=== PATIENT | male | born 1960 | race Caucasian/White ===

== ENCOUNTER → 2017-05-14 | Outpatient (CLI) | payer MEDICARE, OTHER ==
[2017-05-14 07:41] LABS: CH 30.8; CHCM 31.7; HCT 48.1 % (39.0-53.0); HDW 2.46; HGB 15.3 gm/dL (13.0-17.5); MCH 31.1 pg (25.0-35.0); MCHC 31.9 g/dL (31.0-37.0); MCV 97.4 fL (80.0-100.0); Mean Platelet Volume 6.5; RBC 4.93 m/uL (4.30-5.90); WBC 7.5 k/uL (3.8-10.6)
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
[2017-05-14 11:52] LABS: ALT 27 U/L (21-72); AST 18 U/L (17-59); Alkaline Phosphatase 94 U/L (38-126); Anion Gap 8 mmol/L; Blood Urea Nitrogen 16 mg/dL (9-20); Calcium 9.4 mg/dL (8.4-10.2); Carbon Dioxide 27 mmol/L (22-30); Chloride 105 mmol/L (98-107); Cholesterol 236 mg/dL (<200); Glucose 98 mg/dL (74-99); HDL Cholesterol 37 mg/dL (40-60); Non-African American GFR(MDRD) >60 (>60 ml/min/1.73 sqM); Potassium 4.3 mmol/L (3.5-5.1); Sodium 140 mmol/L (137-145); Total Bilirubin 0.4 mg/dL (0.2-1.3); Total Protein 7.2 g/dL (6.3-8.2)
[2017-05-14 12:18] LABS: Prostate Specific Antigen 0.98 ng/mL (0.00-4.00)
== END | disposition home or self-care (01) ==
LOC: LABWHC1 07:10
PROVIDERS: ATTEND Internal Medicine
DX: J44.9 Chronic obstructive pulmonary disease, unspecified (principal); Z00.00 Encounter for general adult medical examination without abnormal findings; E78.2 Mixed hyperlipidemia; K21.0 Gastro-esophageal reflux disease with esophagitis; F31.9 Bipolar disorder, unspecified; E03.9 Hypothyroidism, unspecified; N40.0 Benign prostatic hyperplasia without lower urinary tract symptoms
CPT/HCPCS: 36415; 71020; 80053; 80061; 82272; 84153; 84439; 84443; 85027

== ENCOUNTER → 2020-03-05 | Outpatient (CLI) | payer MEDICARE, OTHER ==
--- NOTE | 2020-03-05 15:27 | XR ---
EXAMINATION TYPE: XR lumbar spine 2 or 3V DATE OF EXAM: 03/05/2020 CLINICAL HISTORY: Lower back pain TECHNIQUE: Frontal and lateral images of the lumbar spine obtained. COMPARISON: None FINDINGS: There are 5 lumbar type vertebral bodies identified. The lumbar spine shows satisfactory alignment without evidence of acute fracture or dislocation. Vertebral body heights and disk space he ights are within normal limits. There is lateral marginal osteophytic spurring of multiple levels. Fa cet arthropathy of the inferior lumbar spine. No evidence of spondylolisthesis. Incompletely visualiz ed hip prosthesis. Abdominal aortic atherosclerotic calcifications. IMPRESSION: 1. No acute fracture or dislocation is seen in the lumbar spine. 2. Multilevel osteophytic spurring and facet arthropathy.
--- NOTE | 2020-03-05 15:36 | XR ---
EXAMINATION TYPE: XR Hip Bilateral Complete DATE OF EXAM: 03/05/2020 CLINICAL HISTORY: Hip pain and numbness for one year TECHNIQUE: AP and frogleg views of the bilateral hips obtained. COMPARISON: Left hip radiograph 01/01/2012 FINDINGS: Left hip arthroplasty with no evidence of dislocation. There is adjacent lucency of the ac etabulum diffusely similar to 2012 comparison. No lucency associated with the femoral stem. Dystrophi c calcifications adjacent to the left greater trochanter, and trochanteric irregularity which appears chronic. There is no acute fracture or dislocation of the bilateral hips. There is right hip joint s pace narrowing with superior acetabular bone on bone contact, sclerosis, and subchondral cystic boogie e. Normal osseous mineralization. IMPRESSION: 1. Degenerative changes of the right hip as above, with [id number] contact at the superior acetabul um. 2. Status post left hip arthroplasty, with appearance similar to 2012 comparison. No evidence of hard duong fracture or dislocation.
== END | disposition home or self-care (01) ==
LOC: RADXRMAIN 14:42
PROVIDERS: ATTEND Family Medicine
DX: M47.816 Spondylosis without myelopathy or radiculopathy, lumbar region (principal); M16.11 Unilateral primary osteoarthritis, right hip; Z96.642 Presence of left artificial hip joint
CPT/HCPCS: 72100; 73521

== ENCOUNTER → 2020-03-19 | Outpatient (CLI) | payer MEDICARE, OTHER ==
[2020-03-19 10:54] LABS: INR 0.9 (<1.2); Prothrombin Time 9.4 sec (9.0-12.0)
[2020-03-19 10:56] LABS: HCT 46.8 % (39.0-53.0); HGB 14.8 gm/dL (13.0-17.5); MCH 30.3 pg (25.0-35.0); MCHC 31.7 g/dL (31.0-37.0); MCV 95.5 fL (80.0-100.0); Mean Platelet Volume 7.5; Platelet Count 360 k/uL (150-450); RDW 13.3 % (11.5-15.5); WBC 9.2 k/uL (3.8-10.6)
[2020-03-19 11:16] LABS: African American GFR (CKD) >90 (>60 ml/min/1.73 sqM); Anion Gap 6 mmol/L; Blood Urea Nitrogen 12 mg/dL (9-20); Carbon Dioxide 26 mmol/L (22-30); Chloride 104 mmol/L (98-107); Glucose 104 mg/dL (74-99); Non-African American GFR(CKD) >90 (>60 ml/min/1.73 sqM); Potassium 4.7 mmol/L (3.5-5.1); Sodium 136 mmol/L (137-145)
== END | disposition home or self-care (01) ==
LOC: LABPAT 09:39
PROVIDERS: ATTEND Orthopaedic Surgery
DX: Z01.812 Encounter for preprocedural laboratory examination (principal); Z01.818 Encounter for other preprocedural examination; M16.11 Unilateral primary osteoarthritis, right hip
CPT/HCPCS: 36415; 80048; 85027; 85610; 86850; 86900; 86901; 87070

== ENCOUNTER → 2020-04-26 | Outpatient (CLI) | payer MEDICARE, OTHER ==
[2020-04-26 12:44] LABS: HCT 51.9 % (39.0-53.0); HGB 16.7 gm/dL (13.0-17.5); MCH 30.1 pg (25.0-35.0); MCHC 32.2 g/dL (31.0-37.0); MCV 93.4 fL (80.0-100.0); Mean Platelet Volume 6.4; Platelet Count 430 k/uL (150-450); RBC 5.55 m/uL (4.30-5.90); RDW 14.2 % (11.5-15.5); WBC 8.9 k/uL (3.8-10.6)
[2020-04-26 12:59] LABS: African American GFR (CKD) >90 (>60 ml/min/1.73 sqM); Anion Gap 9 mmol/L; Blood Urea Nitrogen 10 mg/dL (9-20); Calcium 10.3 mg/dL (8.4-10.2); Carbon Dioxide 26 mmol/L (22-30); Chloride 103 mmol/L (98-107); Glucose 122 mg/dL (74-99); Non-African American GFR(CKD) 90 (>60 ml/min/1.73 sqM); Potassium 4.3 mmol/L (3.5-5.1); Sodium 138 mmol/L (137-145)
[2020-04-26 13:00] LABS: INR 0.9 (<1.2); Prothrombin Time 9.4 sec (9.0-12.0)
== END | disposition home or self-care (01) ==
LOC: LABPAT 11:20
PROVIDERS: ATTEND Orthopaedic Surgery
DX: Z01.818 Encounter for other preprocedural examination (principal); M16.11 Unilateral primary osteoarthritis, right hip
CPT/HCPCS: 80048; 85027; 85610

== ENCOUNTER 2020-04-29 13:23 | Day surgery (SDC) | payer MEDICARE, OTHER ==
[2020-04-24 12:01] VITALS: BMI 25.0
--- NOTE | 2020-04-28 22:52 | HP ---
HISTORY AND PHYSICAL DATE OF SURGERY: 04/29/2020 David Dia is a 59-year-old patient seen with symptomatic right hip osteoarthritis. We discussed options. He elected to proceed with right total hip arthroplasty via direct anterior approach. Consent was obtained. PAST MEDICAL HISTORY: Noncontributory. PAST SURGICAL HISTORY: Left total hip arthroplasty. MEDICATIONS: Albuterol, tramadol. ALLERGIES: ASPIRIN. SOCIAL HISTORY: He denies current tobacco use. PHYSICAL EXAMINATION: Physical evaluation of the right hip: Limited range of motion with severe pain. Positive hip impingement sign. Straight leg raise negative. Distal neurovascular exam intact. Radiographs of the right hip reveal severe osteoarthritic changes. IMPRESSION: 1. Right hip osteoarthritis. 2. Asthma. PLAN: Direct anterior right total hip arthroplasty. MMODL / IJN: [id number] /
[~2020-04-29 13:23] MED LIST: MIDAZOLAM 2 MG/2 ML VIAL IV PRN; ROPIVACAINE 246.25 MG, EPINEPHrine 0.5 MG, KETOROLAC 30 MG, cloNIDine HCL/PF 80 MCG, WA... MISCELLANE ONE; SCOPOLAMINE 1.5MG/72HR PATCH TRANSDERM ONE; TRANEXAMIC ACID 1,000 MG in SODIUM CHLORIDE 0.9% 100 ML IVPB ONE; fentaNYL (PF) 50 MCG/ML 2 ML AMP IVP PRN
[2020-04-29] MEDS: ACETAMINOPHEN TAB 500 MG TAB PO ONE ×2 (13:58→21:04)
[2020-04-29] MEDS ORDERED: LIDOCAINE 1% (10MG/ML) FOR IV START INTRADERMA ONE (13:59)
[2020-04-29] MEDS: LACTATED RINGERS 1,000 ML IV SCH ×4 (13:59→22:15)
[2020-04-29] MEDS: MELOXICAM 7.5 MG TAB PO ONE ×2 (13:59→21:04)
[2020-04-29] MEDS ORDERED: ONDANSETRON 4 MG/2 ML VIAL IVP ONE (14:00)
[2020-04-29] MEDS: DEXAMETHASONE SOD PHOSPHATE 10 MG/ML 1 ML VIAL IV ONE ×2 (14:00→21:04)
[2020-04-29] MEDS ORDERED: TRANEXAMIC ACID 1,000 MG/10 ML VIAL ONE (15:21)
[2020-04-29] MEDS ORDERED: fentaNYL (PF) 50 MCG/ML 2 ML AMP ONE (15:21)
[2020-04-29] MEDS ORDERED: MIDAZOLAM 2 MG/2 ML VIAL ONE (15:21)
[2020-04-29] MEDS ORDERED: SODIUM CHLORIDE 0.9% 100 ML BAG ONE (15:21)
[2020-04-29] MEDS ORDERED: PROPOFOL 10 MG/ML 20 ML VIAL IV ONE (15:21)
[2020-04-29] MEDS ORDERED: ceFAZolin 1,000 MG in SODIUM CHLORIDE 0.9% 1,000 ML IRRIGATION ONE (15:52)
[2020-04-29] MEDS ORDERED: LACTATED RINGERS 1,000 ML IV ONE (16:03)
[2020-04-29] MEDS ORDERED: HYDROmorphone 1 MG/ML 1 ML SYRINGE IVP PRN (16:54)
[2020-04-29] MEDS ORDERED: ONDANSETRON 4 MG/2 ML VIAL IVP PRN (16:54)
[2020-04-29] MEDS ORDERED: HYDROmorphone 0.5 MG/0.5 ML SYRINGE IVP PRN ×2 (16:54)
[2020-04-29] MEDS ORDERED: HYDROcodone/APAP 5-325MG 1 EACH TAB PO PRN (16:54)
[2020-04-29] MEDS ORDERED: NALOXONE 0.4 MG/ML 1 ML VIAL IV PRN (16:54)
--- NOTE | 2020-04-29 16:54 | P.OP ---
Date of Procedure: 04/29/20 Preoperative Diagnosis: Right hip osteoarthritis Postoperative Diagnosis: Right hip osteoarthritis Procedure(s) Performed: Direct anterior right total hip arthroplasty Implants: 1. Depuy [place] KA standard size 10 press-fit femoral stem 2. Depuy [place] 54 mm press-fit acetabular shell 3. Depuy [place] polyethylene acetabular liner neutral 54 OD 36 ID 4. Biolox delta ceramic femoral head +1.5 36 mm Anesthesia: local, spinal Surgeon: Doni Cobos Photography Editor #1: Merrick Loera Estimated Blood Loss (ml): 150 Pathology: other (Femoral head) Condition: stable Disposition: PACU Indications for Procedure: 59-year-old patient seen with symptomatic right hip osteoarthritis. After treatment options were discussed, he elected to proceed with right total hip arthroplasty via direct anterior approach. Operative Findings: See description of procedure Description of Procedure: The patient was taken to the operative suite. Patient underwent a spinal anesthetic by the department of anesthesia. Patient was then transferred to the [place] table. Patient was given preoperative IV antibiotics and TXA. Both lower extremities were placed in standard leg spars. The hip was then prepped and draped in the normal sterile orthopedic fashion. A standard anterior incision was made beginning 3 cm lateral and 1 cm distal to the ASIS extending 10 cm. Dissection was then carried down through the subcutaneous soft tissues down to the fascia overlying the tensor fascia angelo. An incision was now made through the fascia. Careful dissection was taken down exposing the tensor fascia angelo muscle. A Cobra retractor was now placed along the medial femoral neck and a second one along the lateral femoral neck. The venous circumflex vessels were now identified, cauterized and clipped. We identified the anterior hip capsule. An incision was made through the hip capsule along the lateral border. I performed a partial anterior capsulectomy. Retractors were now placed around the femoral neck itself. A femoral neck cut was now made with a sagittal saw. It was completed with an osteotome at the lateral neck area. The femoral head was now removed without difficulty. The extremity was now rotated to 60 of external rotation. It was locked in position. Residual labrum was now debrided out. Serial reaming was performed of the acetabulum while Mike VENTURA assisted holding an anterior retractor for exposure. Once we reached the appropriate size and a trial was position and fit nicely. The appropriate size was now chosen opened and made available. It was introduced into the acetabulum without difficulty. The C-arm/fluoroscopy was now brought into the operative field. We made sure we had a true AP pelvic view. We now under direct C-arm/fluoroscopy introduced into the acetabular component with appropriate version and inclination. I held the cup in appropriate position well Mike VENTUAR used a mallet to seat the acetabular component. I noted the component now to be well seated and stable. Acetabular cup introduce her was removed. The C-arm was pulled back. An appropriate liner was introduced and clicked into position. It was felt to be stable. At this point retractors were removed. The extremity was now placed into 130 external rotation with no traction. The leg was now dropped to the ground and adducted. Appropriate retractors were now positioned along the proximal femur. We also placed our femoral look into position. Additional capsular releasing was performed to gain access to the proximal femur. We now used a box osteotome. A canal finder was now utilized. Serial broaching was now performed with the assistance of Mike VENTURA tapping the broaches down with a mallet while held the broach in appropriate rotation and position. This was done until we reached the appropriate size with good overall rotational stability. Appropriate calcar planing was performed. A trial head/neck was placed into position. The hip was now reduced. The C- arm/fluoroscopy was brought back into the operative field. An AP pelvis was obtained and revealed reasonable alignment of the lesser trochanters for leg length determination. The trial components appeared well positioned. The C- arm/fluoroscopy was pulled back. Retractors were repositioned and the hip was dislocated. The leg was again taken down to the ground and adducted. Appropriate retractors were repositioned as well as the femoral hook. All trial components were removed. The femoral implant was opened along with the femoral head. The femoral implant was introduced on the appropriate handle into our pre-broached area. I held the component position well Mike VENTURA used a mallet to seat the femoral component. The femoral component was now noted to be well seated and stable.. The femoral head was introduced with good positioning and fixation noted. Retractors were now removed. The hip was now reduced. There appeared be good positioning of the hip confirmed on intraoperative fluoroscopy. Spot films were obtained to document this. A second gram of TXA was given. The deep and superficial soft tissues were infiltrated with local analgesic. Bipolar cautery had been utilized intermittently through the procedure for hemostasis. The wound was irrigated copiously with pulse lavage mechanical irrigation. The fascia was repaired with Vicryl suture. The subcutaneous soft tissues were repaired in layers with Vicryl suture. The skin was approximated with pernio/Dermabond. Sterile dressings were applied. Patient was then awakened, transferred to a bed and taken to recovery in stable condition. Mike VENTURA assisted with the complex procedure.
[2020-04-29] MEDS: HYDROmorphone 0.5 MG/0.5 ML SYRINGE IVP PRN ×6 (17:35→19:35)
[2020-04-29] MEDS ORDERED: KETOROLAC 15 MG/ML 1 ML VIAL ONE (17:50)
[2020-04-29] MEDS ORDERED: fentaNYL (PF) 50 MCG/ML 2 ML AMP IVP ONE (19:10)
--- NOTE | 2020-04-29 19:18 | P.PN ---
Progress Note - Text Progress Note Date: 04/29/20 Called due to pt continued pain in hip in PACU. Per nsg pt is stating pain 9/10 in hip. Does not radiate. Vitals however are stable with little reflection of pain. Nursing states some swelling to anterior hip. Recommended Xray, Ice packs, and 10 lb sand bag to anterior hip. Xrays completed in PACU. Implant in good position. No fractures or dislocation noted. No gross swelling appreciated. Ordered 5 mg of Valium TID PRN analgesia for pain, anxiety and spasm like symptoms. Nursing agreed. Call with and questions. As long as pt is stable per PACU staff and anesthesia provider they can be transferred to the floor.
--- NOTE | 2020-04-29 19:26 | XR ---
EXAMINATION TYPE: XR Hip RT and AP Pelvis DATE OF EXAM: 04/29/2020 COMPARISON: 03/05/2020 HISTORY: Pain TECHNIQUE: 3 views FINDINGS: There is a right hip prosthesis. Components appear in anatomic position. The sacroiliac dl nts are intact. Pelvic ring is intact. There is left hip prosthesis. IMPRESSION: Right hip prosthesis appears in good position. No complicating process seen.
[2020-04-29] MEDS ORDERED: SENNOSIDES-DOCUSATE SODIUM 1 EACH TAB PO SCH (21:00)
[2020-04-29] MEDS: HYDROcodone/APAP 5-325MG 1 EACH TAB PO PRN (21:09)
[2020-04-29] MEDS: diazePAM 5 MG TAB PO PRN (22:15)
[2020-04-29] MEDS ORDERED: IPRATROPIUM-ALBUTEROL 3 ML NEB INHALATION PRN (22:45)
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
[2020-04-30] MEDS: NICOTINE 21MG/24HR PATCH TRANSDERM SCH ×2 (00:29→08:31)
[2020-04-30] MEDS: HYDROcodone/APAP 5-325MG 1 EACH TAB PO PRN (04:47)
[2020-04-30 06:26] LABS: Basophils % (A) 0 %; Eosinophils % (A) 0 %; HCT 41.5 % (39.0-53.0); Lymphocytes # (A) 1.5 k/uL (1.0-4.8); Lymphocytes % (A) 9 %; MCHC 31.8 g/dL (31.0-37.0); MCV 94.5 fL (80.0-100.0); Mean Platelet Volume 6.7; Monocytes # (A) 1.1 k/uL (0-1.0); Monocytes % (A) 6 %; Neutrophils # (A) 14.5 k/uL (1.3-7.7); Neutrophils % (A) 83 %; Platelet Count 331 k/uL (150-450); RDW 14.5 % (11.5-15.5); WBC 17.5 k/uL (3.8-10.6)
[2020-04-30 06:29] LABS: HGB 13.2 gm/dL (13.0-17.5)
--- NOTE | 2020-04-30 07:54 | FL ---
Fluoroscopy HISTORY: Anterior hip replacement 23 seconds fluoroscopy time supplied to the referring clinician. 2 intraoperative C-arm images docum ent the procedure. See dictated report from orthopedic surgery.
--- NOTE | 2020-04-30 07:54 | XR ---
Limited right hip HISTORY: Anterior hip replacement 2 intraoperative images document the procedure
[2020-04-30 08:04] VITALS: BP 116/68; PULSE 85; RESP 16; TEMP 98.4
[2020-04-30] MEDS: diazePAM 5 MG TAB PO PRN (08:34)
[2020-04-30] MEDS: LACTATED RINGERS 1,000 ML IV SCH (08:37)
[2020-04-30] MEDS ORDERED: ENOXAPARIN 40 MG/0.4 ML SYRINGE SQ SCH (09:00)
[2020-04-30] MEDS ORDERED: MELOXICAM 7.5 MG TAB PO SCH (09:00)
[2020-04-30 10:13] LABS: African American GFR (CKD) 113.3 (60.0-200.0); Albumin 3.9 g/dL (3.80-4.90); Albumin/Globulin Ratio 2.29 (1.60-3.17); Anion Gap 8.7 mmol/L (4.00-12.00); BUN/Creat Ratio 16.25 Ratio (12.00-20.00); Calcium 8.8 mg/dL (8.7-10.3); Carbon Dioxide 23.3 mmol/L (21.6-31.8); Globulin 1.7 g/dL (1.6-3.3); Non-African American GFR(CKD) 97.8 (60.0-200.0); Potassium 4.4 mmol/L (3.5-5.5); Total Bilirubin 0.5 mg/dL (0.2-1.2); Total Protein 5.6 g/dL (6.2-8.2)
--- NOTE | 2020-04-30 10:32 | P.PN ---
Subjective Progress Note Date: 04/30/20 Patient is doing well today. Pain is well-controlled. He is informed to be discharged later on. Objective - Vital Signs Vital signs: Vital Signs Temp 98.4 F 04/30/20 07:00 Pulse 85 04/30/20 07:00 Resp 16 04/30/20 07:00 BP 116/68 04/30/20 07:00 Pulse Ox 95 04/30/20 07:00 Intake & Output 04/29/20 04/30/20 04/30/20 18:59 06:59 18:59 Intake Total 1751 300 Output Total 150 Balance 1601 300 Weight 67.5 kg Intake: IV 1751 Oral 300 Output: Estimated Blood Loss 150 Other: # Voids 2 - Exam General: The patient is awake and alert, in no distress Eye: there is normal conjunctiva bilaterally. Neck: The neck is supple, there is no JVD. Cardiovascular: Normal S1-S2, no S3-S4, no murmurs. Respiratory: Lungs clear to auscultation bilaterally Gastrointestinal: Abdomen is soft, nontender Musculoskeletal: There is no pedal edema. Neurological:. Speech is normal. Skin: Skin is warm and dry - Labs CBC & Chem 7: 04/30/20 05:33 04/30/20 05:33 Labs: Abnormal Lab Results - Last 24 Hours (Table) 04/30/20 04/30/20 Range/Units 05:33 05:33 WBC 17.5 H (3.8-10.6) k/uL Neutrophils # 14.5 H (1.3-7.7) k/uL Monocytes # 1.1 H (0-1.0) k/uL Total Protein 5.6 L (6.2-8.2) g/dL Assessment and Plan Assessment: Right hip degenerative joint disease status post right total hip arthroplasty postoperative day 1 Pain management and DVT prophylaxis per orthopedics Currently on Lovenox daily Tobacco smoking Counseled to quit smoking during this admission Leukocytosis, most likely reactive. No evidence of infection Today, I reviewed his medication list and lab work results. PT/OT evaluation. Patient is medically cleared for discharge.
--- NOTE | 2020-04-30 10:40 | P.PN ---
Subjective Progress Note Date: 04/30/20 Principal diagnosis: Status post direct anterior right total hip arthroplasty Patient evaluated bedside, is resting comfortably. He did very well with physical therapy. He is having no acute pain. He denies chest pain, shortness of breath, fever or chills. Objective - Vital Signs Vital signs: Vital Signs Temp 98.4 F 04/30/20 07:00 Pulse 85 04/30/20 07:00 Resp 16 04/30/20 07:00 BP 116/68 04/30/20 07:00 Pulse Ox 95 04/30/20 07:00 Intake & Output 04/29/20 04/30/20 04/30/20 18:59 06:59 18:59 Intake Total 1751 300 Output Total 150 Balance 1601 300 Weight 67.5 kg Intake: IV 1751 Oral 300 Output: Estimated Blood Loss 150 Other: # Voids 2 - Exam Right lower extremity: Incision is clean, dry, and intact. The foam dressing is in good condition. There is minimal soft tissue swelling and ecchymosis surrounding the medial and lateral aspects of the incision. Calf is soft, no tenderness with palpation. Plantar flexion, dorsiflexion, EHL, FHL are intact. Sensory exam to light touch throughout the extremity is intact, dorsal pedis pulses 2+. - Labs CBC & Chem 7: 04/30/20 05:33 04/30/20 05:33 Labs: Abnormal Lab Results - Last 24 Hours (Table) 04/30/20 04/30/20 Range/Units 05:33 05:33 WBC 17.5 H (3.8-10.6) k/uL Neutrophils # 14.5 H (1.3-7.7) k/uL Monocytes # 1.1 H (0-1.0) k/uL Total Protein 5.6 L (6.2-8.2) g/dL Assessment and Plan Assessment: Status post direct anterior right total hip arthroplasty Plan: Pain control, plan for discharge home on [place] 7.5/325 GI and DVT prophylaxis, aspirin 81 mg twice a day Wound care instructions discussed Home physical therapy and nursing for discharge Medical recommendations Plan for discharge home today Time with Patient: Less than 30
--- NOTE | 2020-04-30 10:50 | P.DS ---
Providers Date of admission: 04/29/2020 Expected date of discharge: 04/30/20 Attending physician: Doni Cobos Consults: 04/29/20 16:54 Consult Physician Routine Consulting Provider: Peng Soto Consult Reason/Comments: Medical management Do you want consulting provider notified?: Yes Primary care physician: Alvaro Milian [facility] Course: Date of admission: 04/29/2020 Date of discharge: 04/30/2020 Admission diagnosis: direct anterior right total hip arthroplasty Discharge diagnosis: Same Attending physician: Dr. Cobos Surgical procedures: Direct anterior right total hip arthroplasty Brief history: Patient is a 59-year-old male with a history of progressive primary right knee osteoarthritis. At this point patient has failed conservative treatment measures and has opted to proceed with a elective right total knee arthroplasty. Hospital course: Details of patient's surgery can be found in operative report. Patient tolerated the procedure well and was subsequently transported to orthopedic floor. Patient's orthopeidc and medical care was provided daily. Patient had daily laboratory tests performed for evaluation of overall blood counts. Patient had daily physical therapy to include strengthening range of motion as well as education with walker ambulation. Patient was treated with Eliquis for their postoperative DVT prophylaxis during their inpatient stay. Patient was noted to have a relatively uneventful postoperative course. Patient reported satisfactory pain control with oral pain medications by postoperative day 0. Patient showed satisfactory progress with physical therapy. Patient moved steadily through the program and had no difficulty meeting the goals by postoperative day 1. Given patient's otherwise satisfactory course and having met physical therapy goals, plan is to discharge patient home on postoperative day 1. Discharge condition/disposition: Patient will be discharged home in stable condition. Discharge medications: Instructions are given on resumption of patient's normal daily medications per primary care recommendation, in addition patient will be prescribed [place] 7.5 mg/325 mg, Colace 100 mg, aspirin 81 mg. Discharge instructions: 1. Wound care and infection precautions, keep incision dry and covered while showering no lotions, creams, moisturizers. No soaking, tubs, pools, hottubs. Do not scrub over the incision. 2. Weight-bear s tolerated with walker / cane until follow-up. 3. Ice and elevate when necessary. Do not exceed 20 minutes per hour with ice pack. 4. Utilize compression sleeve until seen at first follow up appointment. 5. Visiting nursing care. 6. Home physical therapy. 7. Pain meds and anticoagulants per prescription. 8. Pain medication has potential to cause constipation. Increase oral fluid and fiber intake. Contact primary care provider if you have not had a bowel movement within 48 hours after discharge 9. No anti-inflammatory medication until discussed at first post operative visit, this including Motrin, Aleve, Mobic, Diclofenac. 10. Follow up in office at 2 weeks postop with Mike Loera PA-C 11. Follow up with your primary care doctor 7-10 days after discharge. 12. Contact [facility] with any questions, . Procedures: Direct anterior right total hip arthroplasty Patient Condition at Discharge: Good Plan - Discharge Summary Discharge Rx Participant: Yes New Discharge Prescriptions: New Aspirin [Adult Low Dose Aspirin EC] 81 mg PO BID #60 tablet. [place]te [Colace] 100 mg PO DAILY #30 capsule HYDROcodone/APAP 7.5-325MG [[place] 7.5] 1 - 2 each PO Q6HR PRN #40 tab PRN Reason: Pain No Action traMADol HCL 50 mg PO Q6H PRN PRN Reason: Pain Albuterol Nebulized [Ventolin Nebulized] 2.5 mg INHALATION Q4H PRN PRN Reason: Shortness Of Breath Albuterol Inhaler [Ventolin Hfa Inhaler] 2 puff INHALATION RT-QID PRN PRN Reason: Shortness Of Breath Discharge Medication List Albuterol Inhaler [Ventolin Hfa Inhaler] 2 puff INHALATION RT-QID PRN 04/24/20 [History] Albuterol Nebulized [Ventolin Nebulized] 2.5 mg INHALATION Q4H PRN 04/24/20 [History] traMADol HCL 50 mg PO Q6H PRN 04/24/20 [History] Aspirin [Adult Low Dose Aspirin EC] 81 mg PO BID #60 tablet. 04/30/20 [Rx] [place]usate [Colace] 100 mg PO DAILY #30 capsule 04/30/20 [Rx] HYDROcodone/APAP 7.5-325MG [[place] 7.5] 1 - 2 each PO Q6HR PRN #40 tab 04/30/20 [Rx] Follow up Appointment(s)/Referral(s): [facility] [NON-STAFF] - As Needed (walker) Doni Cobos DO [Doctor of Osteopathic Medicine] - 05/15/20 3:00 pm [facility] Visiting Nurse, [NON-STAFF] - As Needed Activity/Diet/Wound Care/Special Instructions: Orthopedic Discharge Instructions: 1. Wound care and infection precautions, keep incision dry and covered while showering, no lotions, creams, moisturizers. No soaking, pools, hot tubs. Do not scrub over incision. Remove bandage on 05/08/2020 2. Weight-bear as tolerated with walker / cane until follow-up. 3. Ice and elevate when necessary. Do not exceed 20 minutes per hour with ice pack. 4. Utilize compression sleeve until seen at first follow up appointment. 5. Pain meds and anticoagulants per prescription. 6. Pain medication has potential to cause constipation. Increase oral fluid and fiber intake. Contact primary care provider if you have not had a bowel movement within 48 hours after discharge. 7. No anti-inflammatory medication until discussed at first post operative visit, this including Motrin, Aleve, Mobic, Diclofenac. 8. Follow up in office at 2 weeks postop with Mike Loera PA-C 9. Follow up with your primary care doctor 7-10 days after discharge. 10. Contact [facility] with any questions, . Discharge Disposition: HOME WITH HOME HEALTH SERVICES
== END 2020-04-30 12:13 | disposition home health service (06) ==
LOC: OR 13:23 → 4SSUR 16:54 → OR 04-30 12:13
PROVIDERS: ATTEND Orthopaedic Surgery
DX: M16.11 Unilateral primary osteoarthritis, right hip (principal); D72.829 Elevated white blood cell count, unspecified; J44.9 Chronic obstructive pulmonary disease, unspecified; K21.9 Gastro-esophageal reflux disease without esophagitis; F17.210 Nicotine dependence, cigarettes, uncomplicated; Z96.642 Presence of left artificial hip joint; Z79.891 Long term (current) use of opiate analgesic; Z79.899 Other long term (current) drug therapy; Z88.6 Allergy status to analgesic agent
CPT/HCPCS: 97110; 97161; 80053; 85025; 88300; 73501; 73502; 27130; C1776; S4990; J2250; J0171; J1100; J0690 ×3; J2405; J1650; J3010; J1885; J1170 ×2; J2795; J0735; 36415; 80048; 85027; 85610; 86850; 86900; 86901; 87070

== ENCOUNTER → 2020-07-15 | Outpatient (CLI) | payer MEDICARE, OTHER ==
[2020-07-16 01:35] LABS: ALT <8 U/L (10-49); AST 14 U/L (14-35)
[2020-07-16 01:53] LABS: Valproic Acid (Depakene) 43.8 ug/mL (50.0-100.0)
== END | disposition home or self-care (01) ==
LOC: LABWHC1 14:34
PROVIDERS: ATTEND Psychiatry & Neurology Neurology
DX: G40.909 Epilepsy, unspecified, not intractable, without status epilepticus (principal)
CPT/HCPCS: 36415; 80164; 84450; 84460

== ENCOUNTER → 2020-07-30 | Outpatient (CLI) | payer MEDICARE, OTHER ==
[2020-07-31 01:17] LABS: Valproic Acid (Depakene) 36.7 ug/mL (50.0-100.0)
== END | disposition home or self-care (01) ==
LOC: LABWHC1 11:41
PROVIDERS: ATTEND Psychiatry & Neurology Neurology
DX: G40.909 Epilepsy, unspecified, not intractable, without status epilepticus (principal)
CPT/HCPCS: 36415; 80164; 84450; 84460

== ENCOUNTER → 2021-03-07 | Outpatient (CLI) | payer MEDICARE, OTHER ==
--- NOTE | 2021-03-07 15:43 | XR ---
EXAMINATION TYPE: XR chest 2V DATE OF EXAM: 03/07/2021 COMPARISON: 05/14/2017 TECHNIQUE: PA and lateral views submitted. HISTORY: Cough FINDINGS: The lungs are clear and there is no pneumothorax, pleural effusion, or focal pneumonia. Interstitiu m somewhat coarsened. Hyperinflation suggests COPD. Hypertrophic and degenerative change of the spine . IMPRESSION: 1. COPD correlate for bronchitis or interstitial pneumonitis.
== END | disposition home or self-care (01) ==
LOC: RADXRMAIN 14:46
PROVIDERS: ATTEND Nurse Practitioner
DX: J44.9 Chronic obstructive pulmonary disease, unspecified (principal)
CPT/HCPCS: 71046

== ENCOUNTER 2021-06-08 22:21 | Emergency (ER) | payer MEDICARE, OTHER ==
[2021-06-08 22:35] VITALS: BP 127/72; RESP 18; TEMP 97.9
[2021-06-08] MEDS ORDERED: ALBUTEROL HFA INHALER INHALATION STA (22:53)
[2021-06-08] MEDS ORDERED: AMOXIC-POT CLAV 875MG STARTER PACK 2 TAB BTL PO STA (22:53)
[2021-06-08] MEDS ORDERED: MORPHINE SULFATE 4 MG/ML SYRINGE IM STA (22:53)
--- NOTE | 2021-06-08 22:54 | ED ---
ENT HPI - General Chief complaint: Dental/Oral Stated complaint: dental abcess Time Seen by Provider: 06/08/21 22:37 Source: patient Mode of arrival: ambulatory Limitations: no limitations - History of Present Illness Initial comments: 60 year-old male patient presents for evaluation of left sided facial swelling and left upper dental pain that started yesterday after he broke his tooth. States he has also been having trouble getting his insurance to cover his inhaler. He states he has had breathing problems for the last 20 years due to exposure to chemical at work. He denies increase in cough or sputum. States he has felt feverish and chilled. Denies nausea or vomiting. Denies history of diabetes. He is requesting inhaler and antibiotic for his tooth. - Related Data Home Medications Medication Instructions Recorded Confirmed Albuterol Inhaler [Ventolin Hfa 2 puff INHALATION RT-QID PRN 04/24/20 04/29/20 Inhaler] Albuterol Nebulized [Ventolin 2.5 mg INHALATION Q4H PRN 04/24/20 04/29/20 Nebulized] traMADol HCL 50 mg PO Q6H PRN 04/24/20 04/29/20 Previous Rx's Medication Instructions Recorded Aspirin [Adult Low Dose Aspirin EC] 81 mg PO BID #60 tablet. 04/30/20 Docusate [Colace] 100 mg PO DAILY #30 capsule 04/30/20 HYDROcodone/APAP 7.5-325MG [[place] 1 - 2 each PO Q6HR PRN #40 tab 04/30/20 7.5] Amoxic-Pot Clav 875-125Mg 1 tab PO Q12HR #20 tablet 06/08/21 [Augmentin 875-125] Allergies Allergy/AdvReac Type Severity Reaction Status Date / Time aspirin Allergy Rash/Hives Verified 06/08/21 22:36 ibuprofen [From Motrin] Allergy Rash/Hives Verified 06/08/21 22:36 Review of Systems ROS Statement: Those systems with pertinent positive or pertinent negative responses have been documented in the HPI. ROS Other: All systems not noted in ROS Statement are negative. Past Medical History Past Medical History: Asthma, Osteoarthritis (OA) Additional Past Medical History / Comment(s): back History of Any Multi-Drug Resistant Organisms: None Reported Past Surgical History: Joint Replacement, Orthopedic Surgery Additional Past Surgical History / Comment(s): bilateral arms sx on nerves, left hip replaced Past Anesthesia/Blood Transfusion Reactions: No Reported Reaction Past Psychological History: No Psychological Hx Reported Smoking Status: Current every day smoker Past Alcohol Use History: None Reported Past Drug Use History: Marijuana - Past Family History Family Family Medical History: No Reported History General Exam Limitations: no limitations General appearance: alert, in no apparent distress, other (This is a well- developed, well-nourished adult male patient in no acute distress) Eye exam: Present: normal appearance, PERRL, EOMI. Absent: scleral icterus, conjunctival injection, periorbital swelling ENT exam: Present: normal oropharynx, mucous membranes moist, other (There is broken tooth #15. Surrounding gingival erythema. No evidence for drainable abscess.) Respiratory exam: Present: normal lung sounds bilaterally. Absent: respiratory distress, wheezes, rales, rhonchi, stridor Cardiovascular Exam: Present: regular rate, normal rhythm, normal heart sounds. Absent: systolic murmur, diastolic murmur, rubs, gallop, clicks GI/Abdominal exam: Present: soft, normal bowel sounds. Absent: distended, te nderness, guarding, rebound, rigid Neurological exam: Present: alert, oriented X3, CN II-XII intact Psychiatric exam: Present: normal affect, normal mood Skin exam: Present: warm, dry, intact, normal color. Absent: rash Course Vital Signs 06/08/21 06/08/21 22:31 23:46 Temperature 97.9 F Pulse Rate 96 92 Respiratory 18 18 Rate Blood Pressure 127/72 O2 Sat by Pulse 97 97 Oximetry Medical Decision Making - Medical Decision Making 60 year-old male patient presented for evaluation of left upper dental pain and left sided facial swelling. He is afebrile. Lungs are clear to auscultation. His vital signs are unremarkable. He is given puffs of ventolin inhaler here. Given augmentin starter pack. Given 1 dose of morphine. Be discharged to follow up with dentistry as soon as possible. Return parameters were discussed in detail. He verbalizes understanding and agrees with this plan. My attending is Dr. Harding. Disposition Clinical Impression: Dental abscess, Medication refill Disposition: HOME SELF-CARE Condition: Good Instructions (If sedation given, give patient instructions): Dental Abscess (ED), Toothache (ED) Additional Instructions: Complete antibiotic prescription and full. Follow up with dentistry as soon as possible. Return to the emergency department for any new, worsening, or concerning symptoms. Prescriptions: Amoxic-Pot Clav 875-125Mg [Augmentin 875-125] 1 tab PO Q12HR #20 tablet Is patient prescribed a controlled substance at d/c from ED?: No Referrals: Mikie Reynolds MD [Primary Care Provider] - 1-2 days Time of Disposition: 22:54
[2021-06-08 23:48] VITALS: PULSE 92
== END 2021-06-08 23:47 | disposition home or self-care (01) ==
LOC: EC 22:21
DX: K04.7 Periapical abscess without sinus (principal); J45.909 Unspecified asthma, uncomplicated; M19.90 Unspecified osteoarthritis, unspecified site; F17.200 Nicotine dependence, unspecified, uncomplicated; F12.90 Cannabis use, unspecified, uncomplicated; Z79.82 Long term (current) use of aspirin; Z88.6 Allergy status to analgesic agent; Z96.642 Presence of left artificial hip joint
CPT/HCPCS: 99282; 96372; J2270

== ENCOUNTER → 2022-01-22 | Outpatient (CLI) | payer MEDICARE, OTHER ==
--- NOTE | 2022-01-22 12:07 | CTL ---
EXAMINATION TYPE: CT Low Dose Lung DATE OF EXAM ORDERED: 01/22/2022 HISTORY: Tobacco use. Lung cancer screening CT DLP: 98.[address] CTDI: 2.7 mGy Automated exposure control for dose reduction was used. SCREENING VISIT: Baseline COMPARISON: None available TECHNIQUE: Low dose computed tomography scan was performed through the chest at 1 mm thick sections a nd reconstructed images in multiple planes at 1 mm and [address] DIAGNOSTIC QUALITY: Satisfactory FINDINGS: LUNG NODULES: Right lung solid [address] image 82. Left lung solid [address] image 64. Other scattered smaller bilateral upper lobe lung nodules. LUNGS: COPD: Severity: Mild Fibrosis: Severity: Minimal Lymph nodes: No pathologically enlarged lymph nodes. Other findings: Right basal linear pulmonary atelectasis. Diffuse centrilobular faint opacities, nons pecific and could be related to chronic small airways disease, chronic infection or respiratory bronc hiolitis, for clinical correlation and further workup. RIGHT PLEURAL SPACE: Effusion: None Calcification: None Thickening: None Pneumothorax: None LEFT PLEURAL SPACE: Effusion: None Calcification: None Thickening: None Pneumothorax: None HEART: Heart Size: Normal Coronary Calcification: Moderate Pericardial Effusion: None OTHER FINDINGS: Upper abdomen: None Bony thorax: No aggressive lesion. Supraclavicular region: Enlarged thyroid gland, please correlate with thyroid function tests and thyr oid ultrasound results. Other: Scattered arterial atherosclerotic calcifications. IMPRESSION: Few scattered pulmonary nodules measuring up to 3 mm. No suspicious lung lesion. Other fi ndings and recommendations as described above. CT LUNG RAD AND CT CHEST RECOMMENDATION: Lung-Rad 2 Benign Appearance or Behavior: Continue annual sc reening with LDCT in 12 months. S Modifier (other clinically significant findings): As above.
== END | disposition home or self-care (01) ==
LOC: RADCTMAIN 11:35
PROVIDERS: ATTEND Internal Medicine Critical Care Medicine
DX: Z12.2 Encounter for screening for malignant neoplasm of respiratory organs (principal); R91.8 Other nonspecific abnormal finding of lung field; Z87.891 Personal history of nicotine dependence
CPT/HCPCS: 71271

== ENCOUNTER 2022-03-17 07:54 | Day surgery (SDC) | payer MEDICARE, OTHER ==
[2022-03-16 11:10] VITALS: BMI 25.8
[~2022-03-17 07:54] MED LIST changes: +LACTATED RINGERS 1,000 ML IV SCH; +LIDOCAINE 1% (10MG/ML) FOR IV START INTRADERMA PRN; -MIDAZOLAM 2 MG/2 ML VIAL IV PRN; -ROPIVACAINE 246.25 MG, EPINEPHrine 0.5 MG, KETOROLAC 30 MG, cloNIDine HCL/PF 80 MCG, WA... MISCELLANE ONE; -SCOPOLAMINE 1.5MG/72HR PATCH TRANSDERM ONE; -TRANEXAMIC ACID 1,000 MG in SODIUM CHLORIDE 0.9% 100 ML IVPB ONE; -fentaNYL (PF) 50 MCG/ML 2 ML AMP IVP PRN
[2022-03-17 08:09] VITALS: RESP 16; TEMP 97
[2022-03-17] MEDS ORDERED: METOCLOPRAMIDE 5 MG/ML 2 ML VIAL ONE (08:19)
[2022-03-17] MEDS ORDERED: FAMOTIDINE 20 MG/2 ML VIAL IV ONE (08:23)
--- NOTE | 2022-03-17 08:42 | P.GSHP ---
History of Present Illness H&P Date: 03/17/22 Chief Complaint: Screening, history of polyps 61-year-old male here today for colonoscopy. Patient says his last colonoscopy was 5 years ago or so. Patient with personal history of polyps. No family history of colon cancer. No bowel complaints. Past Medical History Past Medical History: Asthma, COPD, Osteoarthritis (OA), Seizure Disorder Additional Past Medical History / Comment(s): chronic back pain , emphysema, last seizure december 2021 History of Any Multi-Drug Resistant Organisms: None Reported Past Surgical History: Joint Replacement, Orthopedic Surgery Additional Past Surgical History / Comment(s): bilateral arms sx on nerves, left hip replaced, colonoscopy Past Anesthesia/Blood Transfusion Reactions: No Reported Reaction Smoking Status: Current every day smoker - Past Family History Family Family Medical History: No Reported History Medications and Allergies Home Medications Medication Instructions Recorded Confirmed Type Albuterol Inhaler [Ventolin Hfa 2 puff INHALATION RT-QID PRN 04/24/20 03/17/22 History Inhaler] Acetaminophen/Diphenhydramine 1 tab PO HS PRN 03/16/22 03/17/22 History [Tylenol PM 500-25mg] Atorvastatin [Lipitor] 40 mg PO DAILY 03/16/22 03/17/22 History Budesonide-Formot 160-4.5 Mcg 2 puff INHALATION BID 03/16/22 03/17/22 History [Symbicort 160-4.5 Mcg Inhaler] Buprenorphine HCl/Naloxone HCl 1 tab SUBLINGUAL DAILY 03/16/22 03/17/22 History [Buprenorphine-Nalox 8-2 mg Tab] Divalproex [Depakote] 1,250 mg PO BID 03/16/22 03/17/22 History Montelukast Sodium [Singulair] 10 mg PO HS 03/16/22 03/17/22 History Allergies Allergy/AdvReac Type Severity Reaction Status Date / Time aspirin Allergy Rash/Hives Verified 03/17/22 08:12 ibuprofen [From Motrin] Allergy Rash/Hives Verified 03/17/22 08:12 Surgical - Exam Vital Signs Temp Pulse Resp BP Pulse Ox 97.0 F L 86 16 141/76 97 03/17/22 08:08 03/17/22 08:08 03/17/22 08:08 03/17/22 08:08 03/17/22 08:08 Physical exam: General: Well-developed, well-nourished HEENT: Normocephalic, sclerae nonicteric Abdomen: Nontender, nondistended Extremities: No edema Neuro: Alert and oriented Assessment and Plan (1) Colon cancer screening Narrative/Plan: Will proceed with colonoscopy at this time Current Visit: Yes Status: Acute Code(s): Z12.11 - ENCOUNTER FOR SCREENING FOR MALIGNANT NEOPLASM OF COLON SNOMED Code(s): 647870459
[2022-03-17] MEDS ORDERED: PROPOFOL 10 MG/ML 20 ML VIAL IV ONE (08:44)
--- NOTE | 2022-03-17 09:06 | P.PCN ---
Date of Procedure: 03/17/22 Procedure(s) Performed: PREOPERATIVE DIAGNOSIS: Colon cancer screening, history of polyps POSTOPERATIVE DIAGNOSIS: Colon polyps, diverticulosis PROCEDURE: Colonoscopy with snare polypectomy ANESTHESIA: MAC SURGEON: Mason Chi M.D. SPECIMENS: Polyps ENDOSCOPIC PROCEDURE: The patient was placed on the endoscopy table in the left decubitus position. The Olympus colonoscope was inserted into the anus and passed under direct visualization to the base of the cecum. The appendiceal orifice was visualized. From that point the scope was slowly withdrawn inspecting all surfaces carefully. There was a 8 mm sessile polyp at the base of the cecum. This was removed using the snare with cautery technique. The ascending colon appeared normal. In the transverse colon another small polyp was seen and removed using the snare with cautery technique. Descending colon appeared normal. In the sigmoid colon 2 small polyps removed using the snare with cautery technique. The remainder of the sigmoid and rectum was normal. The patient had mild left-sided diverticulosis with tortuosity. Digital rectal examination was normal. The patient was taken to the recovery room in stable condition per anesthesia guidelines. RECOMMENDATIONS: Await biopsy results. Repeat colonoscopy 5 years.
[2022-03-17 09:14] VITALS: PULSE 71
[2022-03-17 09:42] VITALS: BP 102/55
== END 2022-03-17 09:46 | disposition home or self-care (01) ==
LOC: ORWHC2ENDO 07:54
PROVIDERS: ATTEND Surgery
DX: Z12.11 Encounter for screening for malignant neoplasm of colon (principal); D12.3 Benign neoplasm of transverse colon; K63.5 Polyp of colon; K57.30 Diverticulosis of large intestine without perforation or abscess without bleeding; Q43.8 Other specified congenital malformations of intestine; Z86.010 Personal history of colon polyps; J44.9 Chronic obstructive pulmonary disease, unspecified; M19.90 Unspecified osteoarthritis, unspecified site; G40.909 Epilepsy, unspecified, not intractable, without status epilepticus; G89.29 Other chronic pain; M54.9 Dorsalgia, unspecified; J43.9 Emphysema, unspecified; Z96.642 Presence of left artificial hip joint; Z98.890 Other specified postprocedural states; F17.200 Nicotine dependence, unspecified, uncomplicated; Z79.51 Long term (current) use of inhaled steroids; Z79.899 Other long term (current) drug therapy; Z88.6 Allergy status to analgesic agent
CPT/HCPCS: 88305; 45385; J2765; J2704

== ENCOUNTER 2022-11-13 14:38 | Emergency (ER) | payer MEDICARE, OTHER ==
--- NOTE | 2022-11-13 15:10 | XR ---
EXAMINATION TYPE: XR chest 2V DATE OF EXAM: 11/13/2022 3:03 PM COMPARISON: Chest radiographs from 09/30/2021. TECHNIQUE: XR chest 2V Frontal and lateral views of the chest. CLINICAL INDICATION:Male, 61 years old with history of upper resp symptoms; FINDINGS: Lungs/Pleura: Hyperinflation with patchy left basilar airspace opacity. No pneumothorax or pleural ef fusion. Pulmonary vascularity: Unremarkable. Heart/mediastinum: Cardiomediastinal silhouette is unremarkable. Musculoskeletal: No acute osseous pathology. IMPRESSION: Background COPD changes with left basilar airspace opacity which may represent atelectasis versus inf iltrate.
--- NOTE | 2022-11-13 15:53 | ED ---
URI HPI - General Chief Complaint: Upper Respiratory Infection Stated Complaint: spitting up blood Time Seen by Provider: 11/13/22 15:19 Source: patient Mode of arrival: ambulatory Limitations: no limitations - History of Present Illness Initial Comments: Patient is a 61-year-old man with some chronic underlying lung disease, who presents with complaint that over the past 1-2 days she has been feeling more rundown. He may have had some low-grade fever and chills he did not take his temperature. Over the course of last night into this morning he started to develop increasing cough and has had some small streaks of blood associated. The patient denies chest pain. There is a little bit of exertional dyspnea no dyspnea at rest. MD Complaint: cough Onset/Timin -: days(s) Consistency: constant Improves With: nothing Worsens With: nothing Associated Symptoms: cough Treatments Prior to Arrival: none - Related Data Home Medications Medication Instructions Recorded Confirmed Albuterol Inhaler [Ventolin Hfa 2 puff INHALATION RT-QID PRN 04/24/20 11/13/22 Inhaler] Atorvastatin [Lipitor] 40 mg PO DAILY 03/16/22 11/13/22 Montelukast Sodium [Singulair] 10 mg PO HS 03/16/22 11/13/22 Divalproex Sodium 250 mg PO BID 11/13/22 11/13/22 Divalproex Sodium [Depakote] 1,000 mg PO BID 11/13/22 11/13/22 Fluticasone/Umeclidin/Vilanter 1 puff INHALATION RT-DAILY 11/13/22 11/13/22 [Trelegy Ellipta 200-62.5-25] HYDROcodone/APAP 10-325MG [[place] 1 tab PO TID PRN 11/13/22 11/13/22 10-325] Previous Rx's Medication Instructions Recorded Amoxic-Pot Clav 875-125Mg 1 tab PO BID 1 Days #14 tab 11/13/22 [Augmentin 875-125] Azithromycin [Zithromax] 0 mg PO DIRECTED #6 tab 11/13/22 Allergies Allergy/AdvReac Type Severity Reaction Status Date / Time aspirin Allergy Rash/Hives Verified 11/13/22 15:49 & Abdominal pain ibuprofen [From Motrin] Allergy Rash/Hives Verified 11/13/22 15:49 Review of Systems ROS Statement: Those systems with pertinent positive or pertinent negative responses have been documented in the HPI. ROS Other: All systems not noted in ROS Statement are negative. Constitutional: Denies: fever, chills Respiratory: Reports: cough, hemoptysis. Denies: dyspnea Cardiovascular: Denies: chest pain, palpitations, orthopnea, edema, syncope Gastrointestinal: Denies: abdominal pain, vomiting, diarrhea Genitourinary: Denies: dysuria, hematuria Musculoskeletal: Denies: back pain Skin: Denies: rash Neurological: Denies: headache, weakness Past Medical History Past Medical History: Asthma, Osteoarthritis (OA) Additional Past Medical History / Comment(s): back , emphysemia History of Any Multi-Drug Resistant Organisms: None Reported Past Surgical History: Joint Replacement, Orthopedic Surgery Additional Past Surgical History / Comment(s): bilateral arms sx on nerves, left hip replaced Past Anesthesia/Blood Transfusion Reactions: No Reported Reaction Past Psychological History: No Psychological Hx Reported Smoking Status: Current some day smoker Past Alcohol Use History: None Reported Past Drug Use History: Marijuana - Past Family History Family Family Medical History: No Reported History General Exam Limitations: no limitations General appearance: alert, in no apparent distress Head exam: Present: atraumatic, normocephalic Eye exam: Present: normal appearance. Absent: scleral icterus, conjunctival injection Neck exam: Present: normal inspection Respiratory exam: Present: normal lung sounds bilaterally. Absent: respiratory distress, wheezes, rales, rhonchi, stridor Cardiovascular Exam: Present: regular rate, normal rhythm, normal heart sounds. Absent: systolic murmur, diastolic murmur, rubs, gallop GI/Abdominal exam: Present: soft. Absent: distended, tenderness, guarding, rebound, rigid, mass Extremities exam: Present: normal inspection, normal capillary refill. Absent: pedal edema, calf tenderness Back exam: Present: normal inspection Neurological exam: Present: alert Skin exam: Present: warm, dry, intact, normal color. Absent: rash Course Vital Signs 11/13/22 11/13/22 11/13/22 14:41 14:45 17:00 Temperature 97.4 F L 98.3 F Pulse Rate 91 88 Respiratory 18 20 18 Rate Blood Pressure 145/75 138/78 O2 Sat by Pulse 95 98 Oximetry Medical Decision Making - Medical Decision Making 's patient is a 61-year-old man presenting to have evaluation for acute cough and mild dyspnea. The patient is sent for chest x-ray which I interpreted as showing small infiltrate. Discussed admission versus outpatient treatment and patient wouldn't rather attempt course of outpatient antibiotics. He understands the appropriate further care and follow-up as well as the return parameters. Was pt. sent in by a medical professional or institution (, [facility], [employer], urgent care, hospital, or correction...) When possible be specific @ -[No] Did you speak to anyone other than the patient for history (EMS, parent, family, police, friend...)? What history was obtained from this source @ -[No] Did you review nursing and triage notes (agree or disagree)? Why? @ -[I reviewed and agree with nursing and triage notes] Were old charts reviewed (outside hosp., previous admission, EMS record, old EKG, old radiological studies, urgent care reports/EKG's, correction records)? Report findings @ -[No old charts were reviewed] Differential Diagnosis (chest pain, altered mental status, abdominal pain women, abdominal pain men, vaginal bleeding, weakness, fever, dyspnea, syncope, headache, dizziness, GI bleed, back pain, seizure, CVA, palpatations, mental health, musculoskeletal)? @ -[Differential Dyspnea: Coronary syndrome, arrhythmia, tamponade, asthma, COPD, pulmonary embolism, pneumonia, pneumothorax, pulmonary effusion, anaphylaxis, diabetic ketoacidosis, flailed chest, pulmonary contusion, diaphragmatic rupture, anemia, neuromuscular, this is not meant to be an all-inclusive list. EKG interpreted by me (3pts min.). @ -[ X-rays interpreted by me (1pt min.). @ -[As above CT interpreted by me (1pt min.). @ -[None done] U/S interpreted by me (1pt. min.). @ -[None done] What testing was considered but not performed or refused? (CT, X-rays, U/S, labs)? Why? @ -[None] What meds were considered but not given or refused? Why? @ -[None] Did you discuss the management of the patient with other professionals (professionals i.e. , [facility], [employer], lab, RT, psych nurse, healthcare social worker, corporate controller, teacher, signals officer, case consultant)? Give summary @ -[No] Was smoking cessation discussed for >3mins.? @ -[No] Was critical care preformed (if so, how long)? @ -[No] Were there social determinants of health that impacted care today? How? (Homelessness, low income, unemployed, alcoholism, drug addiction, transportation, low edu. Level, literacy, decrease access to med. care, [facility], rehab)? @ -[No] Was there de-escalation of care discussed even if they declined (Discuss DNR or withdrawal of care, Hospice)? DNR status @ -[No] What co-morbidities impacted this encounter? (DM, HTN, Smoking, COPD, CAD, Cancer, CVA, ARF, Chemo, Hep., AIDS, mental health diagnosis, sleep apnea, morbid obesity)? @ -[None] Was patient admitted / discharged? Hospital course, mention meds given and route, prescriptions, significant lab abnormalities, going to OR and other pertinent info. @ -[Discharged Undiagnosed new problem with uncertain prognosis? @ -[No] Drug Therapy requiring intensive monitoring for toxicity (Heparin, Nitro, Insulin, Cardizem)? @ -[No] Were any procedures done? @ -[No] Diagnosis/symptom? @ -[1. Suspected acute pneumonia 2. COPD exacerbation Acute, or Chronic, or Acute on Chronic? @ -[Acute Uncomplicated (without systemic symptoms) or Complicated (systemic symptoms)? @ -[Uncomplicated Side effects of treatment? @ -[No] Exacerbation, Progression, or Severe Exacerbation? @ -[No] Poses a threat to life or bodily function? How? (Chest pain, [place], [place], pneumonia, PE, COPD, DKA, ARF, appy, cholecystitis, CVA, Diverticulitis, Homicidal, Suicidal, threat to staff... and all critical care pts) @ -[No] - Lab Data Lab Results 11/13/22 Range/Units 16:04 Coronavirus (PCR) Not Detected (Not Detectd) Disposition Clinical Impression: Pneumonia Disposition: HOME SELF-CARE Condition: Good Instructions (If sedation given, give patient instructions): Pneumonia (ED) Prescriptions: Amoxic-Pot Clav 875-125Mg [Augmentin 875-125] 1 tab PO BID 1 Days #14 tab Azithromycin [Zithromax] 0 mg PO DIRECTED #6 tab Is patient prescribed a controlled substance at d/c from ED?: No Referrals: Juventino Felton MD [Primary Care Provider] - 1-2 days
[2022-11-13] MEDS ORDERED: AMOXIC-POT CLAV 875-125MG 1 EACH TAB PO STA (16:08)
[2022-11-13] MEDS ORDERED: AZITHROMYCIN 500 MG TAB PO STA (16:09)
[2022-11-13 17:25] VITALS: BP 138/78; PULSE 88; RESP 18; TEMP 98.3
== END 2022-11-13 17:00 | disposition home or self-care (01) ==
LOC: EC 14:38
DX: J18.9 Pneumonia, unspecified organism (principal); J44.0 Chronic obstructive pulmonary disease with (acute) lower respiratory infection; M19.90 Unspecified osteoarthritis, unspecified site; F17.200 Nicotine dependence, unspecified, uncomplicated; F12.90 Cannabis use, unspecified, uncomplicated; Z88.6 Allergy status to analgesic agent; Z79.1 Long term (current) use of non-steroidal anti-inflammatories (NSAID); Z79.899 Other long term (current) drug therapy; Z20.822 Contact with and (suspected) exposure to COVID-19
CPT/HCPCS: 71046; 87635; 99283

== ENCOUNTER → 2024-10-18 | Outpatient (CLI) | payer MEDICARE, OTHER ==
--- NOTE | 2024-10-18 14:29 | US ---
EXAMINATION TYPE: US abdomen complete DATE OF EXAM: 10/18/2024 COMPARISON: NONE CLINICAL INDICATION: Male, 63 years old with history of R10.84 GENERALIZED ABDOMINAL PAIN R19.7 DIARR HEA; diarrhea for 3 weeks, abdominal pain for 2 months TECHNIQUE: Grayscale and color Doppler imaging of the abdomen was performed. FINDINGS: EXAM MEASUREMENTS: Liver Length: 15.2 cm Gallbladder Wall: 0.2 cm CBD: 1.0 cm, color Doppler imaging was utilized to isolate the common bile duct for measurement. Spleen: 8.1 cm Right Kidney: 10.9 x 4.6 x 4.9 cm Left Kidney: 11.2 x 4.8 x 5.[address] NOTES: Limitations due to large amount of overlying bowel gas Pancreas: Obscured by bowel gas Liver: wnl Gallbladder: no evidence of stones Evidence for sonographic Fraser's sign: no CBD: dilated Spleen: appears wnl Right Kidney: anechoic lesion = 1.7 x 1.8 x 1.8cm Left Kidney: dense echogenic focus mid = 0.7cm Upper IVC: wnl Abd Aorta: proximal obscured by overlying bowel gas. calcifications noted The liver is homogenous. The intrahepatic portion of the IVC and visualized distal abdominal aorta a re within normal limits. There is no evidence of cholelithiasis. Common bile duct is mildly dilated . Suboptimal evaluation of pancreas due to overlying bowel gas on initial images. The spleen is unre markable. Kidneys are symmetric and free of hydronephrosis. There is 1.7 cm simple appearing thin-wa lled cyst centrally in the right kidney marked by technologist. There may be 7 mm nonobstructing calc ulus in the left kidney. IMPRESSION: 1. Suboptimal study without acute findings seen to account for patient's symptoms. 2. Mild to moderate extra hepatic biliary dilatation. Consider ERCP/MRCP follow-up to further evaluat e based on clinical correlation an correlation with liver lab values. [facility], , 10/18/2024 2:27 PM
== END | disposition home or self-care (01) ==
LOC: RADUSWWP 13:01
PROVIDERS: ATTEND Family Medicine
DX: K83.8 Other specified diseases of biliary tract (principal); R10.84 Generalized abdominal pain; R19.7 Diarrhea, unspecified
CPT/HCPCS: 76700

== ENCOUNTER → 2024-11-13 | Outpatient (CLI) | payer MEDICARE, OTHER ==
--- NOTE | 2024-11-13 15:15 | CT ---
EXAMINATION TYPE: CT abdomen w con CT DLP: 362.3 mGycm, Automated exposure control for dose reduction was used. DATE OF EXAM: 11/13/2024 2:51 PM COMPARISON: Abdominal ultrasound CLINICAL INDICATION:Male, 63 years old with history of R10.13 Epigastric pain; R19.7 Diarrhea; Epigas tric pain TECHNIQUE: Standard CT of the abdomen following the administration of 100 cc of Isovue 300 IV contr ast material and oral contrast. Coronal and sagittal reformats were performed. FINDINGS: LOWER CHEST: Right lower lobe linear atelectasis. ABDOMEN LIVER: Unremarkable. Portal venous system is patent. GALLBLADDER AND BILE DUCTS: Unremarkable. PANCREAS: Unremarkable. SPLEEN: Unremarkable. ADRENAL GLANDS: Unremarkable. KIDNEYS AND URETERS: No evidence of hydronephrosis. Nonobstructive right renal upper pole 3.8 mm calc ulus. Nonobstructive left mid kidney 4.8 mm calculus. Right renal lower pole 1.6 cm simple cyst. Obinna tional subcentimeter right mid kidney cyst. No follow-up. Contrast is demonstrated within both collec ting systems and ureters on the delayed phase. STOMACH AND BOWEL: Stomach and duodenum are unremarkableno focal bowel wall thickening or surrounding inflammatory changes. Enteric contrast reaches the mid to distal small bowel. No evidence of bowel o bstruction. PERITONEUM: No evidence of pneumoperitoneum or free fluid. VASCULATURE: Moderate atherosclerotic calcifications are present throughout the abdominal aorta and i ts branches. No evidence of aortic aneurysm. MUSCULOSKELETAL: No acute osseous abnormalities LYMPH NODES: No evidence for lymphadenopathy. SOFT TISSUE/ABDOMINAL WALL: Unremarkable IMPRESSION: 1. No CT evidence for acute abdominal process. 2. Nonobstructive bilateral renal calculi. [facility], , 11/13/2024 3:13 PM
== END | disposition home or self-care (01) ==
LOC: RADCTMAIN 13:44
PROVIDERS: ATTEND Family Medicine
DX: N20.0 Calculus of kidney (principal); R19.7 Diarrhea, unspecified
CPT/HCPCS: 74160; Q9967

== ENCOUNTER → 2024-11-16 | Outpatient (CLI) | payer MEDICARE, OTHER ==
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
== END | disposition home or self-care (01) ==
LOC: RADFLMAIN 08:50
PROVIDERS: ATTEND Family Medicine
DX: K44.9 Diaphragmatic hernia without obstruction or gangrene (principal); K63.89 Other specified diseases of intestine
CPT/HCPCS: 74246